=== PATIENT | female | born 1935 | race Caucasian/White ===

== ENCOUNTER 2018-04-22 11:21 | Outpatient (CLI) | payer OTHER ==
[2018-04-22 11:51] LABS: MEAN CORPUSCULAR HEMOGLOBIN 30.5 pg (28.0-34.0)
[2018-04-22 11:52] LABS: BASOPHILS % 0.5 (0.0-1.5); EOSINOPHILS % 6.9 % (0.0-6.8); MONOCYTES % 7.6 % (0.0-11.0)
== END 2018-04-22 11:23 ==
LOC: LAB 11:21
PROVIDERS: ATTEND Nurse Practitioner Family
DX: R71.0 Precipitous drop in hematocrit (principal)
CPT/HCPCS: 36415; 85025